=== PATIENT | male | born 1980 | race African-American/Black ===

== ENCOUNTER 2019-04-07 07:38 | Emergency (ER) | payer SELFPAY ==
[~2019-04-07] VITALS: Ht 170.2 cm; Wt 86.4 kg
[2019-04-07] MEDS ORDERED: CYCLOBENZAPR5 MG PO (09:08)
[2019-04-07] MEDS ORDERED: MOTRIN400 MG PO (09:08)
[2019-04-07 09:20] VITALS: BP 138/93
== END 2019-04-07 09:27 | disposition home or self-care (01) | DRG 563 ==
LOC: ED 07:38
DX: S46.912A Strain of unspecified muscle, fascia and tendon at shoulder and upper arm level, left arm, initial encounter (principal); M79.642 Pain in left hand; M25.522 Pain in left elbow; M25.512 Pain in left shoulder; X58.XXXA Exposure to other specified factors, initial encounter; Y93.89 Activity, other specified; Y92.89 Other specified places as the place of occurrence of the external cause

== ENCOUNTER 2020-01-11 21:21 | Observation (INO) | payer SELFPAY ==
[~2020-01-11] VITALS: Ht 170.2 cm; Wt 84.0 kg
[~2020-01-11 21:21] MED LIST: CYCLOBENZAPR5 MG PO; MOTRIN400 MG PO
--- NOTE | 2020-01-11 21:26 | NUR ---
AMBULATED TO ROOM
[2020-01-11 22:08] LABS: HEMATOCRIT 38.7 % (39.0-50.0); HEMOGLOBIN 12.9 g/dl (14.0-18.0); IMMATURE GRANULOCYTES 0.1 % (0.0-5.0); MEAN CORPUSCULAR HGB CONC 33.3 g/L CALC (32.0-36.0); NEUT# 4.03 thou/uL (1.82-7.42); RED BLOOD COUNT 4.16 mill/uL (4.70-6.10); RED CELL DISTRI WIDTH 12.1 % (11.5-15.5)
--- NOTE | 2020-01-11 22:30 | NUR ---
RESTING QUIETLY. AWAITING DISPO.
[2020-01-11 22:45] LABS: ALBUMIN 4.3 g/dL (3.2-5.0); ALKALINE PHOSPHATASE 50 u/l (38-126); AMYLASE 87 u/l (30-110); ANION GAP 13 (6-22 (CALC)); BILIRUBIN, TOTAL 0.6 mg/dL (0.0-1.4); BUN 12 mg/dL (9-20); BUN/CREATININE RATIO 10 (12-20 (CALC)); CARBON DIOXIDE 26 mmol/l (22-30); CHLORIDE 106 mmol/l (95-108); CREATININE 1.2 mg/dL (0.7-1.3); GFR > 60 ML/MIN (>=60 (CALC)); GFR FOR AFR.AMER. > 60 ML/MIN (>=60 (CALC)); LIPASE 115 u/l (23-300); POTASSIUM 3.2 mmol/l (3.5-5.1); SGOT/AST 28 u/l (17-59); SODIUM 141 mmol/l (137-146); TOTAL PROTEIN 8.1 g/dL (6.3-8.2)
[2020-01-11 22:57] LABS: MYOGLOBIN 29 ng/mL (0 - 121)
--- NOTE | 2020-01-11 23:26 | NUR ---
NO CHANGE IN EXAM. APPEARS COMFORTABLE, NO C/O
--- NOTE | 2020-01-11 23:40 | NUR ---
AGREES TO ADMISSION.
--- NOTE | 2020-01-12 00:30 | NUR ---
RESTING QUIETLY NO C/O
--- NOTE | 2020-01-12 01:30 | NUR ---
NO CHANGE IN EXAM
--- NOTE | 2020-01-12 01:58 | NUR ---
PT ARRIVED TO THE FLOOR VIA WC ACCOMPANIED BY ED NURSE. PT APPEARS IN STABLE CONDITION, C/O HEADACHE. AIDE IN W/PT OBTAINING WEIGHT, V/S AND ORIENTING PT TO ROOM.
--- NOTE | 2020-01-12 02:05 | NUR ---
Admission Note Report Given to: KETTY ROPER Transported by: X Wheelchair Stretcher Transported with: X Nurse Transporter X Patent IV O2 X System Controller Location: ICU X [facility]
[2020-01-12 02:30] VITALS: BP 172/93
--- NOTE | 2020-01-12 02:59 | NUR ---
PT C/O HEADACHE AND CHEST PAIN IN RIGHT UPPER CHEST. BP ELEVATED @172/73,HR55. CALLED AND DISCUSSED MEDICATION ORDERS W/ED NURSE WHO CONFIRMED THAT MEDICATION ORDERS IN ED WERE NOT ADMINISTERED. ED PHYSICIAN WAS NOTFIED THAT MEDICATION ORDERS HAD NOT BEEN RECEIVED BY PT AND NEW ORDERS WERE RECEIVED AT THIS TIME FOR MORPHINE AND ASP.
--- NOTE | 2020-01-12 03:41 | NUR ---
PT MEDICATED ORDERS WERE RECEIVED FROM ED PHYSICIAN PER MY PHONE CALL TO PHYSICIAN. PT PROVIDED PO FLUIDS. DENIES ANY OTHER NEEDS. WILL REASSESS BP TO MONITOR PT'S RESPONSE TO MEDICATIONS.
[2020-01-12 04:30] VITALS: BP 157/92
--- NOTE | 2020-01-12 06:16 | NUR ---
PT WAS SLEEPING I ENTERED THE ROOM. PT MEDICATED AND POC DISCUSSED. CALL LIGHT W/IN REACH AND PT ENCOURAGED TO CALL NEEDS ARISE.
--- NOTE | 2020-01-12 07:30 | NUR ---
REPORT RECEIVED FROM KETTY ROPER. PT RESTING IN BED SUPINE TALKING ON PHONE; ALERT AND ORIENTED. DENIES PAIN, BUT STATES THAT HE CAN FEEL A HEADACHE STARTING; NITRO PASTE REMOVED FROM RIGHT UPPER CHEST. RESPIRATIONS EVEN AND UNLABORED ON ROOM AIR. PLAN OF CARE REVIEWED. PT ENCOURAGED TO VERBALIZE CONCERNS. STATES UNDERSTANDING. SAFETY MEASURES IN PLACE. CALL LIGHT WITHIN REACH.
[2020-01-12 08:00] VITALS: BP 142/84
[2020-01-12] MEDS ORDERED: AMLODIPINE BESYL5 MG PO (09:36)
[2020-01-12 10:45] LABS: URINE BILIRUBIN - DIPSTICK NEGATIVE (NEGATIVE); URINE BLOOD DIPSTICK NEGATIVE (NEGATIVE); URINE COLOR YELLOW; URINE GLUCOSE - DIPSTICK NEGATIVE (NEGATIVE); URINE KETONE NEGATIVE (NEGATIVE); URINE LEUK ESTERASE NEGATIVE (NEGATIVE); URINE NITRITE - DIPSTICK NEGATIVE (Negative); URINE PH 6.5 (4.5-8.0); URINE PROTEIN - DIPSTICK NEGATIVE (NEG-TRACE); URINE SPECIFIC GRAVITY 1.025
--- NOTE | 2020-01-12 10:54 | NUR ---
POTASSIUM REPLACED AND NORVASC GIVEN FOR HYPERTENSION.
--- NOTE | 2020-01-12 10:54 | NUR ---
URINE SPECIMEN COLLECTED AND SENT TO LAB.
[2020-01-12 11:00] LABS: BARBITURATES NEGATIVE (NEGATIVE); COCAINE NEGATIVE (NEGATIVE); METHADONE NEGATIVE (NEGATIVE); OXCYCODONE NEGATIVE (NEGATIVE); TETRAHYDROCANNABIONOL POSITIVE (NEGATIVE); TRICYLIC ANTIDEPRESSANTS NEGATIVE (NEGATIVE)
--- NOTE | 2020-01-12 11:12 | NUR ---
DR. MARTIN AND MARCOS BROWN AT BEDSIDE.
[2020-01-12 11:51] VITALS: BP 170/100
[2020-01-12 12:00] VITALS: BP 171/102
--- NOTE | 2020-01-12 12:00 | NUR ---
IV site discontinued, cath intact. No edema , no redness, voices no discomfort.
[2020-01-12 12:05] VITALS: BP 172/98
--- NOTE | 2020-01-12 12:17 | NUR ---
Discharge instructions given. Patient verbalizes understanding of same. Discharged in stable condition via Ambulatory to Home. All belongings sent with pt.
== END 2020-01-12 12:14 | disposition home or self-care (01) | DRG 313 ==
LOC: ED 21:21 → ED-I 23:14 → ED 23:46 → ED-I 23:46 → MS2 01-12 00:26
PROVIDERS: Emergency Medicine; ADMIT Internal Medicine; ATTEND Internal Medicine
DX: R07.89 Other chest pain (principal); I10 Essential (primary) hypertension; E87.5 Hyperkalemia; F17.210 Nicotine dependence, cigarettes, uncomplicated; T46.5X6A Underdosing of other antihypertensive drugs, initial encounter; Z91.128 Patient's intentional underdosing of medication regimen for other reason
CPT/HCPCS: G0378

== ENCOUNTER 2020-03-07 09:19 | Emergency (ER) | payer SELFPAY ==
[~2020-03-07 09:19] MED LIST changes: +AMLODIPINE BESYL5 MG PO
[2020-03-07] MEDS ORDERED: HYDROCO/APAP1 TA9 PO (09:58)
[2020-03-07] MEDS ORDERED: CLEOCIN300 MG PO (09:58)
[2020-03-07] MEDS ORDERED: DIFLUCAN150 MG PO (09:58)
[2020-03-07 10:05] VITALS: BP 160/79
== END 2020-03-07 10:05 | disposition home or self-care (01) | DRG 158 ==
LOC: ED 09:19
DX: K04.7 Periapical abscess without sinus (principal); B37.0 Candidal stomatitis; K02.9 Dental caries, unspecified; F17.210 Nicotine dependence, cigarettes, uncomplicated

== ENCOUNTER 2022-04-27 03:29 | Emergency (ER) | payer SELFPAY ==
[2022-04-27] VITALS (11 sets, daily range): BP systolic 137–179; BP diastolic 95–117
[~2022-04-27] VITALS: Ht 170.2 cm; Wt 81.0 kg
[~2022-04-27 03:29] MED LIST changes: +CLEOCIN300 MG PO; +DIFLUCAN150 MG PO; +HYDROCO/APAP1 TA9 PO
[2022-04-27 03:52] LABS: HEMATOCRIT 37.5 % (39.0-50.0); HEMOGLOBIN 12.5 g/dl (14.0-18.0); IMMATURE GRANULOCYTES 0.1 % (0.0-5.0); MEAN CELL VOLUME 96.6 fL CALC (80.0-100.0); MEAN CORPUSCULAR HGB 32.2 pG CALC (26.0-32.0); MEAN CORPUSCULAR HGB CONC 33.3 g/dL CAL (32.0-36.0); NEUT# 3.29 thou/uL (1.82-7.42); RED BLOOD COUNT 3.88 mill/uL (4.70-6.10); RED CELL DISTRI WIDTH 12.7 % (11.5-15.5)
[2022-04-27 03:52] LABS: URINE BILIRUBIN - DIPSTICK NEGATIVE (NEGATIVE); URINE BLOOD DIPSTICK NEGATIVE (NEGATIVE); URINE COLOR YELLOW; URINE GLUCOSE - DIPSTICK NEGATIVE (NEGATIVE); URINE KETONE NEGATIVE (NEGATIVE); URINE LEUK ESTERASE NEGATIVE (NEGATIVE); URINE PROTEIN - DIPSTICK NEGATIVE (NEG-TRACE); URINE UROBILINOGEN - DIPSTICK 0.2 E.U./dL (0.2)
[2022-04-27 04:00] LABS: URINE NITRITE - DIPSTICK NEGATIVE (Negative)
[2022-04-27 04:19] LABS: ALBUMIN 4.1 g/dL (3.2-5.0); ALKALINE PHOSPHATASE 52 u/l (38-126); AMYLASE 93 u/l (30-110); ANION GAP 9 (6-22 (CALC)); BUN 16 mg/dL (9-20); BUN/CREATININE RATIO 13 (12-20 (CALC)); CARBON DIOXIDE 27 mmol/l (22-30); CHLORIDE 109 mmol/l (95-108); CREATININE 1.2 mg/dL (0.7-1.3); GFR FOR AFR.AMER. > 60 ML/MIN (>=60 (CALC)); GFR OTHER RACES > 60 ML/MIN (>=60 (CALC)); LIPASE 170 u/l (23-300); POTASSIUM 3.3 mmol/l (3.5-5.1); SGOT/AST 24 u/l (17-59); SODIUM 142 mmol/l (137-146); TOTAL PROTEIN 7.8 g/dL (6.3-8.2)
[2022-04-27 04:22] LABS: BILIRUBIN, TOTAL 0.2 mg/dL (0.0-1.4)
[2022-04-27 04:31] LABS: MYOGLOBIN 29 ng/mL (0 - 121)
[2022-04-27] MEDS ORDERED: LISINOP/HCTZ1 TA2 PO (05:50)
== END 2022-04-27 06:07 | disposition home or self-care (01) | DRG 392 ==
LOC: ED 03:29
PROVIDERS: Family Medicine
DX: R10.12 Left upper quadrant pain (principal); I10 Essential (primary) hypertension; F17.290 Nicotine dependence, other tobacco product, uncomplicated
CPT/HCPCS: Q9967